=== PATIENT | female | born 2005 | race Hispanic/Latino ===

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

== ENCOUNTER 2025-03-03 10:19 | Emergency (ER) | payer BC ==
[~2025-03-03] VITALS: Ht 157.5 cm; Wt 107.5 kg
--- NOTE | 2025-03-03 10:29 | ERN ---
ED Note History of Present Illness Stated Complaint: VAGINAL PAIN, DYSURIA X3 DAYS Chief Complaint: Vaginal Problems/Bleeding Time Seen by MD: 10:22 Dictation: PATIENT IS A 19-YEAR-OLD FEMALE COMING IN TODAY WITH SUPRAPUBIC TENDERNESS AND DYSURIA SHE HAS HAD FOR THREE DAYS. SHE DENIES FEVER CHILLS NAUSEA VOMITING, NO FLANK PAIN. STATES SHE HAS A HISTORY OF URINARY TRACT INFECTIONS HOWEVER DID NOT HAVE TIME TO GO SEE HER DOCTOR LAST WEEK WHEN SHE HAD THE SYMPTOMS.. SHE STATES SHE IS SEXUALLY ACTIVE, NO CONTROL. Allergies: Coded Allergies: No Known Drug Allergies (Unverified Allergy, Unknown, 12/12/19) Home Meds Active Scripts Phenazopyridine HCl (Pyridium) 200 Mg Tab, 200 MG PO TIDPC for 3 Days, #9 TAB TAKE WITH FOOD TO PREVENT STOMACH UPSET. Prov:ALICE VASQUES NP 03/03/25 Amoxicillin/Potassium Clav (Amox Tr-K Clv 875-125 mg Tab) 875 Mg-125 Mg Tablet, 1 EACH PO BID for 5 Days, #10 TAB 0 Refills Prov:ALICE VASQUES NP 03/03/25 Nitrofurantoin/Nitrofuran Mac (Macrobid) 100 Mg Cap, 1 CAP PO BID for 5 Days, #10 CAP 0 Refills Prov:IRON BINGHAM 10/24/24 Famotidine (Pepcid) 20 Mg Tablet, 1 TAB PO BID for 30 Days, #60 TAB 0 Refills Prov:IRON BINGHAM 09/01/24 Ondansetron (Ondansetron Odt) 4 Mg Tab.rapdis, 4 MG PO BID for 7 Days, #14 TAB Prov:IRON BINGHAM 09/01/24 Sulfamethoxazole/Trimethoprim (Bactrim Ds Tablet) 800 Mg-160 Mg Tablet, 1 TAB PO BID for 7 Days, #14 TAB 0 Refills Prov:IRON BINGHAM 09/01/24 Dicyclomine HCl (Bentyl) 20 Mg Tab, 20 MG PO BID for 5 Days, #10 TAB Prov:VIKASH KEITH MD 03/20/24 Nitrofurantoin Macrocrystal (Nitrofurantoin) 100 Mg Capsule, 100 MG PO BID for 7 Days, #14 CAP Prov:VIKASH KEITH MD 03/18/24 Ondansetron (Ondansetron Odt) 4 Mg Tab.rapdis, 4 MG SL TID PRN for NAUSEA, #30 TAB 0 Refills Prov:SAAD LITTLE MD 04/29/23 Meclizine HCl (Meclizine HCl) 25 Mg Tablet, 25 MG PO TIDP PRN for DIZZINESS, #30 TAB 0 Refills Prov:SAAD LITTLE MD 04/29/23 Pantoprazole Sodium (Pantoprazole Sodium) 20 Mg Tablet.dr, 20 MG PO DAILY, #30 TAB 0 Refills Prov:SAAD LITTLE MD 04/29/23 Ondansetron (Ondansetron Odt) 4 Mg Tab.rapdis, 4 MG PO Q6HPRN PRN for NAUSEA/VOMITING for 4 Days, #16 TAB Prov:SEAN MORRISON SHOCK ABSORPTION FLOOR LAYER 04/28/23 Cephalexin Monohydrate (Keflex) 500 Mg Cap, 500 MG PO BID for 7 Days, #28 CAP Prov:SEAN MORRISON SHOCK ABSORPTION FLOOR LAYER 04/28/23 Ondansetron (Ondansetron Odt) 4 Mg Tab.rapdis, 4 MG PO TID PRN for NAUSEA/VOMITING, #15 TAB 0 Refills Prov:SAAD LITTLE MD 10/02/22 Loperamide HCl (Imodium) 2 Mg Cap, 2 MG PO QIDP PRN for DIARRHEA, #15 CAP 0 Refills Prov:SAAD LITTLE MD 10/02/22 Nitrofurantoin/Nitrofuran Mac (Macrobid) 100 Mg Cap, 1 CAP PO BID for 7 Days, #14 CAP 0 Refills Prov:SAAD LITTLE MD 10/02/22 Famotidine (Pepcid) 20 Mg Tablet, 20 MG PO BID, #60 TAB Prov:ELKIN BHATT 09/30/22 Past Medical History Past Medical History: GERD Additional Past Medical Hx: Morbidly obese, H-PYLORI GASTRITIS Surgical History: None Family History: Negative Social History: Lives with family LMP: Feb 10, 2025 : 0 Para: 0 Aborts: 0 RN Note Reviewed/Agreed w/PFSH: Yes Review of System Dictation CONSTITUTIONAL: NEGATIVE EXCEPT FOR HPI HEAD/FACE: NEGATIVE EXCEPT FOR HPI EENT: NEGATIVE EXCEPT FOR HPI RESPIRATORY: NEGATIVE EXCEPT FOR HPI GASTROINTESTINAL/ABDOMINAL: NEGATIVE EXCEPT FOR HPI GENITOURINARY: NEGATIVE EXCEPT FOR HPI DYSURIA WITH SUPRAPUBIC PAIN MUSCULOSKELETAL: NEGATIVE EXCEPT FOR HPI INTEGUMENTARY: NEGATIVE EXCEPT FOR HPI NEUROLOGICAL/PSYCH: NEGATIVE EXCEPT FOR HPI HEMATOLOGIC/LYMPHATIC: NEGATIVE EXCEPT FOR HPI ALL SYSTEMS NEGATIVE, EXCEPT NOTED ABOVE. 13 POINT REVIEW OF SYSTEMS ASSESSED AND ALL NEGATIVE EXCEPT FOR ABOVE. Initial Vital Sign VS Vital Signs Date Time Temp Pulse Resp B/P (MAP) Pulse Ox O2 Delivery O2 Flow Rate FiO2 03/03/25 10:22 97.5 90 14 149/87 97 Room Air 0 03/03/25 12:06 21 Physical Exam Dictation VITAL SIGNS REVIEWED GENERAL APPEARANCE: ALERT, ORIENTED X 3, MILD ACUTE DISTRESS, WELL DEVELOPED, NOURISHED. MODERATELY OBESE HEAD AND FACE: NON-TRAUMATIC. EYES: PERRL, PINK CONJUNCTIVAS, EYELID NO TRAUMA, ANTERIOR CHAMBER WITH ARCUS SE NILIS. EARS: PINNAS INTACT AND NO SIGNS OF TRAUMA OR ERYTHEMA EAR CANALS CLEAR AND NO DISCHARGE TM NO ERYTHEMA NOSE: NO DISCHARGE, NO BLEEDING. OROPHARYNX: MOUTH NORMAL, TONGUE PINK, PHARYNX CLEAR,NO ERYTHEMA, TONSILS NO EXUDATES, NO ABSCESSES NOTED, MUCOUS MEMBRANE MOIST NECK: SUPPLE, NON-TENDER, NO THYROMEGALY, NO MASSES, NO JVD, NO BRUITS BREAST:DEFERRED CHEST:NO TENDERNESS, NO CREPITUS, NO PARADOXICAL MOVEMENT, NO RETRACTIONS LUNGS:CLEAR, WELL-VENTILATED, SYMMETRIC, NO RALES, NO WHEEZING, NO RHONCHI, NO STRIDOR, GOOD BREATH SOUNDS BILATERALLY HEART: REGULAR RATE, REGULAR RHYTHM, NO MURMUR, NO GALLOPS VASCULAR: NO PERIPHERAL EDEMA, ABDOMEN: SOFT, POSITIVE BOWEL SOUNDS, NONDISTENDED, NO GUARDING, NONTENDER, NO REBOUND, NO MASSES NO HEPATOMEGALY, NO SPLENOMEGALY, NO CRUZ'S SIGN, NO HERNIAS. NEGATIVE CVAT RECTAL: DEFERRED GENITAL: DEFERRED NEUROLOGICAL: NORMAL SPEECH, MOTOR FUNCTION INTACT, SENSORY FUNCTION INTACT MUSCULOSKELETAL: NECK NONTENDER, FULL RANGE OF MOTION, BACK NONTENDER, FULL RA NGE OF MOTION, EXTREMITIES: NONTENDER, FULL RANGE OF MOTION SKIN: COLOR PINK, DRY, NO TURGOR, NO RASH, NO LACERATIONS, NO ABRASIONS, NO CONTUSIONS. LYMPHATIC: DEFERRED Results (Laboratory/Radiology) Laboratory/Radiology Laboratory Tests Test 03/03/25 10:58 Urine Color DARK-ORANGE (YELLOW) Urine Appearance CLEAR (CLEAR) Urine pH 6.0 (5.0-8.0) Urine Specific [place] 1.033 (1.001-1.031) Urine Protein 30 mg/dL (NEGATIVE) H Urine Glucose (UA) NEGATIVE mg/dL (NEGATIVE) Urine Ketones 5 mg/dL (NEGATIVE) H Urine Occult Blood NEGATIVE (NEGATIVE) Urine Nitrate 2+ (NEGATIVE) H Urine Bilirubin 2 mg/dL (NEGATIVE) H Urine Urobilinogen 6 mg/dL (0.2-1.0) H Urine Leukocyte Esterase NEGATIVE [place]/uL Urine RBC 0-1 /HPF (0-1) Urine WBC 2-5 /HPF (0-1) H Urine Squamous Epithelial Cells RARE /HPF (0-2) Urine Bacteria RARE /HPF (None Seen) Urine HCG, Qualitative NEGATIVE (NEGATIVE) Labs Reviewed?: Yes ED Course ED Course Orders Procedure Category Date Status Time ,Urine Test LAB 03/03/25 Complete 10:27 Urinalysis Profile LAB 03/03/25 Complete 10:27 Acetaminophen 500mg PHA 03/03/25 Complete Tab (Tylenol 500mg T 10:30 Culture Urine KIRSTIE 03/03/25 In Process 11:20 Current Medications Medications (Trade) Dose Ordered Sig/Monico Route PRN Reason Start Time Stop Time Status Last Admin Dose Admin Acetaminophen (TYLenol 500MG TAB) 1,000 mg ONCE ONCE PO 03/03/25 10:30 03/03/25 10:31 DC Vital Signs Date Time Temp Pulse Resp B/P (MAP) Pulse Ox O2 Delivery O2 Flow Rate FiO2 03/03/25 12:06 97.5 86 16 125/70 99 Room Air* 0 21 03/03/25 10:22 97.5 90 14 149/87 97 Room Air 0 1132/PATIENT HAS A ACUTE YOUR NEW TRACT INFECTION WE WILL BE DISCHARGED HOME WITH AUGMENTIN AND TOLD TO SEE HER PRIMARY CARE DOCTOR ON WEDNESDAY. Medical Decision Making MDM MEDICAL DISCHARGE MAKING BASED ON URINALYSIS AND HCG HCG NEGATIVE PATIENT HAS A ACUTE CYSTITIS DISCHARGED HOME WITH AUGMENTIN AND PYRIDIUM DX & DISP Disposition: Discharge Departure Impression: Primary Impression: Acute cystitis with hematuria Condition: Stable Scripts Phenazopyridine HCl (Pyridium) 200 Mg Tab 200 MG PO TIDPC for 3 Days, #9 TAB TAKE WITH FOOD TO PREVENT STOMACH UPSET. Prov: ALICE VASQUES SHOCK ABSORPTION FLOOR LAYER 03/03/25 Amoxicillin/Potassium Clav (Amox Tr-K Clv 875-125 mg Tab) 875 Mg-125 Mg Tablet 1 EACH PO BID for 5 Days, #10 TAB 0 Refills Prov: ALICE VASQUES NP 03/03/25 Additional Instructions: FOLLOW-UP WITH PRIMARY CARE PROVIDER IN 1 TO 2 DAYS. TAKE MEDICATIONS DIRECTED HERE IN THE EMERGENCY ROOM. OKAY TO CONTINUE HOME MEDICATIONS UNLESS OTHERWISE DISCUSSED DURING YOUR VISIT IN THE EMERGENCY ROOM TODAY. RETURN TO YOUR NEAREST EMERGENCY ROOM IF SYMPTOMS WORSEN OR IF THERE IS NO IMPROVEMENT. CALL 911 IF YOU NEED IMMEDIATE ASSISTANCE. TAKE TYLENOL OR MOTRIN [id number] NEEDED AND IF NO CONTRAINDICATIONS ARE PRESENT. INCREASE ORAL HYDRATION. A WOUND CULTURE OR URINE CULTURE WAS ORDERED HERE IN THE EMERGENCY ROOM DEPARTMENT PLEASE FOLLOW-UP WITH PRIMARY CARE PROVIDER AND ADVISE THEM TO GET REPEAT PORTS FROM OUR FACILITY. IF YOU HAD ANY WESLEY WRAP/SPLINTS THAT WERE APPLIED HERE, PLEASE DO NOT REMOVE THEM UNTIL YOU SEE YOUR PRIMARY CARE OR SPECIALTY. TAKE ANTIBIOTICS DIRECTED UNTIL GONE. INCREASE YOUR WATER INTAKE. , REMEMBER THE PYRIDIUM WILL TURN YOUR URINE ORANGE RED. SEE YOUR PRIMARY CARE DOCTOR FOR FOLLOW UP NEXT WEEK Referrals: BROOKLYNN BRADY MD (PCP) Time of Disposition: 11:37 I have reviewed the case, and I agree with, Diagnosis and Plan ALICE VASQUES NP Mar 03, 2025 10:29 OLE MARS DO Mar 03, 2025 13:55
[2025-03-03] MEDS: acetaMINOPHEN 500 MG TABLET PO ONE (10:57)
[2025-03-03 11:14] LABS: APPEARANCE,URINE CLEAR (CLEAR); BILIRUBIN,URINE 2 mg/dL (NEGATIVE); COLOR,URINE DARK-ORANGE (YELLOW); GLUCOSE, URINE (UA) NEGATIVE (NEGATIVE); KETONES,URINE 5 mg/dL (NEGATIVE); LEUKOCYTE ESTERASE ,URINE NEGATIVE Leu/uL (NEGATIVE); NITRATE,URINE 2+ (NEGATIVE); OCCULT BLOOD,URINE NEGATIVE (NEGATIVE); PROTEIN,URINE 30 mg/dL (NEGATIVE); UROBILINOGEN,URINE 6 mg/dL (0.2-1.0)
[2025-03-03 11:15] LABS: HCG,QUALITATIVE URINE NEGATIVE (NEGATIVE)
[2025-03-03 11:20] LABS: ADD UA MICROSCOPIC YES
[2025-03-03 11:24] LABS: BACTERIA,URINE RARE /HPF (None Seen); MUCUS,URINE MOD LPF (None Seen); RBC,URINE 0-1 /HPF (0-1); SQUAMOUS EPITHELIAL CELL,UR RARE /HPF (0-2)
[2025-03-03] MEDS ORDERED: PHEN-847 PO (11:38)
[2025-03-03] MEDS ORDERED: AMOX1TAB16 PO (11:38)
[2025-03-03 12:06] VITALS: BP 125/70; PULSE 86; RESP 16; TEMP 97.6; O2SAT 99
== END 2025-03-03 12:08 | disposition home or self-care (01) ==
LOC: EDH 10:19
DX: N30.01 Acute cystitis with hematuria (principal); E66.01 Morbid (severe) obesity due to excess calories; Z79.899 Other long term (current) drug therapy
CPT/HCPCS: 81001; 81025; 87086; 99283

== ENCOUNTER 2025-03-05 07:04 | Emergency (ER) | payer BC ==
[~2025-03-05] VITALS: Ht 162.6 cm; Wt 107.5 kg
[~2025-03-05 07:04] MED LIST changes: +AMOX1TAB16 PO; +PHEN-847 PO
[2025-03-05 07:50] LABS: BASOPHILS # (AUTO) 0.04 K/uL (0.00-0.20); BASOPHILS % (AUTO) 0.3 % (0.0-5.0); EOSINOPHILS # (AUTO) 0.03 K/uL (0.00-0.70); EOSINOPHILS % (AUTO) 0.2 % (0.0-8.0); HEMATOCRIT 40.9 % (36-48); IMMATURE GRANULOCYTE ABSOLUTE 0.05 K/uL (0-1); LYMPHOCYTES # (AUTO) 2.2 K/uL (1.0-4.8); LYMPHOCYTES % (AUTO) 16.9 % (21.0-51.0); MEAN CORPUSCULAR HEMOGLOBIN 31.7 pg (27.0-33.0); MEAN CORPUSCULAR HGB CONC 34.2 g/dL (32.0-36.0); MEAN CORPUSCULAR VOLUME 92.7 fL (80-100); MONOCYTES # (AUTO) 0.6 K/uL (0.1-1.0); MONOCYTES % (AUTO) 4.5 % (3.0-13.0); NEUTROPHILS # (AUTO) 10.3 K/uL (1.8-7.7); NEUTROPHILS % (AUTO) 77.7 % (40.0-77.0); PLATELET COUNT (AUTO) 323 K/uL (130-400); RED BLOOD CELL COUNT(AUTO) 4.41 MIL/uL (4.00-5.50); RED CELL DISTRIBUTION WIDTH 12.8 % (11.0-15.5); WHITE BLOOD COUNT (AUTO) 13.2 K/uL (4.8-10.8)
[2025-03-05 07:52] LABS: APPEARANCE,URINE CLEAR (CLEAR); KETONES,URINE 15 mg/dL (NEGATIVE); LEUKOCYTE ESTERASE ,URINE TRACE Leu/uL (NEGATIVE); OCCULT BLOOD,URINE NEGATIVE (NEGATIVE)
[2025-03-05 08:05] LABS: CREATININE 0.6 mg/dL (0.5-1.0); POTASSIUM 3.4 mmol/L (3.5-5.1)
[2025-03-05 08:24] LABS: COLOR,URINE ORANGE (YELLOW)
[2025-03-05 08:26] LABS: GLUCOSE, URINE (UA) NEGATIVE (NEGATIVE)
[2025-03-05 08:28] LABS: ADD UA MICROSCOPIC YES
[2025-03-05 08:29] LABS: BACTERIA,URINE None Seen /HPF (None Seen); MUCUS,URINE Moderate LPF (None Seen); RBC,URINE 0-1 /HPF (0-1); SQUAMOUS EPITHELIAL CELL,UR Rare /HPF (0-2); WBC,URINE 0-1 /HPF (0-1)
[2025-03-05] MEDS: PANTOPrazole 40 MG/VIAL ONE (08:29)
[2025-03-05 08:30] LABS: YEAST,URINE BUDDING Rare /HPF (None Seen)
[2025-03-05] MEDS: ketOROlac 30MG VIAL (30MG/ML) IV ONE (08:31)
[2025-03-05] MEDS: ketOROlac 30MG VIAL (30MG/ML) ONE (08:31)
[2025-03-05] MEDS: 0.9%NACL 1000ML 1,000 ML IV ONE (08:31)
[2025-03-05] MEDS: PANTOPrazole 40 MG/VIAL IVP ONE (08:31)
[2025-03-05 08:43] LABS: AMPHET/METH SCREEN,URINE NEGATIVE (NEGATIVE); BARBITURATE SCREEN, URINE NEGATIVE (NEGATIVE); BENZODIAZEPINES SCREEN,URINE NEGATIVE (NEGATIVE); CANNABINOID SCREEN,URINE POSITIVE (NEGATIVE); COCAINE SCREEN,URINE NEGATIVE (NEGATIVE); OPIATE SCREEN,URINE NEGATIVE (NEGATIVE); PHENCYCLIDINE SCREEN,URINE NEGATIVE (NEGATIVE)
[2025-03-05 08:44] LABS: ALBUMIN 3.8 g/dL (3.5-5.0); BILIRUBIN,DIRECT 0.1 mg/dL (0.0-0.3); BILIRUBIN,TOTAL 0.6 mg/dL (0.2-1.0); TOTAL PROTEIN, SERUM 7.9 g/dL (6.0-8.3)
[2025-03-05] MEDS ORDERED: HALOPERIDOL INJ 5 MG/ML VIAL IV PRN (09:00)
[2025-03-05] MEDS: ondanSETRON 4MG INJ IVP ONE (09:37)
--- NOTE | 2025-03-05 09:38 | EKG ---
[facility] Test Date: 2025-03-05 Test Time: 09:06:51 Pat Name: JOHNATHAN RAGSDALE Department: [facility] Room: Gender: F Can Line Examiner: [id number] : 2005 Requested By: WARNER HAYES Order Number: [id number] Reading MD: Abran Feliz Measurements Intervals [place] Rate: 67 P: 71 IL: 155 QRS: 61 QRSD: 117 T: 24 QT: 413 QTc: 436 Interpretive Statements Sinus rhythm Nonspecific intraventricular conduction delay No previous ECG available for comparison Electronically Signed On 03-06-2025 13:36:04 CDT by Abran Feliz Please click the below link to view image of tracing.
[2025-03-05 09:40] VITALS: O2SAT 99
[2025-03-05] MEDS: HALOPERIDOL INJ 5 MG/ML VIAL IM ONE (09:41)
--- NOTE | 2025-03-05 10:36 | HMCIMG ---
CT ABDOMEN/PELVIS W/O CONTRAST HISTORY: Abdominal pain COMPARISON: 10/24/2024 TECHNIQUE: Multiple sequential axial images of the abdomen and pelvis were obtained from the dome of the diaphragm through symphysis pubis. Patient was not given contrast through intravenous route. Oral contrast was not given. FINDINGS: No pleural effusion is seen bilaterally. There is no evidence of parenchymal disease or pulmonary nodule of the visualized lower lungs. Degenerative changes of the thoracolumbar spine are present. The heart is not enlarged. The liver, spleen, adrenal glands and pancreas are unremarkable. There is no evidence of hydronephrosis bilaterally. No evidence of renal stone is seen. Fecal material is seen in the colon. There are normal size retroperitoneal and mesenteric lymph nodes. No ascites is seen. No CT evidence of acute appendicitis is seen. Pelvic sidewalls are symmetric bilaterally. Bladder is poorly distended. If there is clinical suspicion for cystitis, urinalysis correlation may be helpful. IMPRESSION: 1. No acute findings. CT was performed with one or more following dose reduction techniques: automated exposure control, adjustment of the mA and kv according to patient's size, or use of a iterative reconstruction technique.
--- NOTE | 2025-03-05 10:40 | ERN ---
General Chief Complaint: Painful Urination Stated Complaint: LOWER ABD PAIN, DX W/ UTI Time Seen by MD: 07:17 Source: patient History of Present Illness Initial Comments THIS IS A 19-YEAR-OLD FEMALE COMING IN TO BE EVALUATED FOR ABDOMINAL PAIN. PATIENT INITIALLY STATES THAT SHE HAS BEEN HAVING SUPRAPUBIC PAIN WHICH WAS SEEN BEFORE AND WAS PRESCRIBED ANTIBIOTICS FOR URINARY TRACT INFECTION. SHE STATES NOW THAT THE PAIN IS GENERALIZED IN HIS PRESENT IN ALL AREAS OF HER BELLY. NO NAUSEA NO VOMITING. Allergies: Coded Allergies: No Known Drug Allergies (Unverified Allergy, Unknown, 12/12/19) Home Meds Active Scripts Phenazopyridine HCl (Pyridium) 200 Mg Tab, 200 MG PO TIDPC for 3 Days, #9 TAB TAKE WITH FOOD TO PREVENT STOMACH UPSET. Prov:ALICE VASQUES NP 03/03/25 Amoxicillin/Potassium Clav (Amox Tr-K Clv 875-125 mg Tab) 875 Mg-125 Mg Tablet, 1 EACH PO BID for 5 Days, #10 TAB 0 Refills Prov:ALICE VASQUES NP 03/03/25 Nitrofurantoin/Nitrofuran Mac (Macrobid) 100 Mg Cap, 1 CAP PO BID for 5 Days, #10 CAP 0 Refills Prov:IRON BINGHAM 10/24/24 Famotidine (Pepcid) 20 Mg Tablet, 1 TAB PO BID for 30 Days, #60 TAB 0 Refills Prov:IRON BINGHAM 09/01/24 Ondansetron (Ondansetron Odt) 4 Mg Tab.rapdis, 4 MG PO BID for 7 Days, #14 TAB Prov:IRON BINGHAM 09/01/24 Sulfamethoxazole/Trimethoprim (Bactrim Ds Tablet) 800 Mg-160 Mg Tablet, 1 TAB PO BID for 7 Days, #14 TAB 0 Refills Prov:IRON BINGHAM 09/01/24 Dicyclomine HCl (Bentyl) 20 Mg Tab, 20 MG PO BID for 5 Days, #10 TAB Prov:VIKASH KEITH MD 03/20/24 Nitrofurantoin Macrocrystal (Nitrofurantoin) 100 Mg Capsule, 100 MG PO BID for 7 Days, #14 CAP Prov:VIKASH KEITH MD 03/18/24 Ondansetron (Ondansetron Odt) 4 Mg Tab.rapdis, 4 MG SL TID PRN for NAUSEA, #30 TAB 0 Refills Prov:SAAD LITTLE MD 04/29/23 Meclizine HCl (Meclizine HCl) 25 Mg Tablet, 25 MG PO TIDP PRN for DIZZINESS, #30 TAB 0 Refills Prov:SAAD LITTLE MD 04/29/23 Pantoprazole Sodium (Pantoprazole Sodium) 20 Mg Tablet.dr, 20 MG PO DAILY, #30 TAB 0 Refills Prov:SAAD LITTLE MD 04/29/23 Ondansetron (Ondansetron Odt) 4 Mg Tab.rapdis, 4 MG PO Q6HPRN PRN for NAUSEA/VOMITING for 4 Days, #16 TAB Prov:SEAN MORRISON COMMAND AND CONTROL SYSTEMS INTEGRATOR 04/28/23 Cephalexin Monohydrate (Keflex) 500 Mg Cap, 500 MG PO BID for 7 Days, #28 CAP Prov:SEAN MORRISON COMMAND AND CONTROL SYSTEMS INTEGRATOR 04/28/23 Ondansetron (Ondansetron Odt) 4 Mg Tab.rapdis, 4 MG PO TID PRN for NAUSEA/VOMITING, #15 TAB 0 Refills Prov:SAAD LITTLE MD 10/02/22 Loperamide HCl (Imodium) 2 Mg Cap, 2 MG PO QIDP PRN for DIARRHEA, #15 CAP 0 Refills Prov:SAAD LITTLE MD 10/02/22 Nitrofurantoin/Nitrofuran Mac (Macrobid) 100 Mg Cap, 1 CAP PO BID for 7 Days, #14 CAP 0 Refills Prov:SAAD LITTLE MD 10/02/22 Famotidine (Pepcid) 20 Mg Tablet, 20 MG PO BID, #60 TAB Prov:ELKIN BHATT 09/30/22 Past Medical History Past Medical History: GERD Medical History Other: Morbidly obese, H-PYLORI GASTRITIS Past Surgical History: None Family History Family History: Negative Social History Social History: Lives with family Female( History) LMP: Feb 10, 2025 : 0 Para: 0 Aborts: 0 Results Laboratory and Microbiology Lab and Micro Result Laboratory Tests Test 03/05/25 07:40 White Blood Count 13.2 K/uL (4.8-10.8) H Red Blood Count 4.41 MIL/uL (4.00-5.50) Hemoglobin 14.0 g/dL (12.0-16.0) Hematocrit 40.9 % (36-48) Mean Corpuscular Volume 92.7 fL (80-100) Mean Corpuscular Hemoglobin 31.7 pg (27.0-33.0) Mean Corpuscular Hemoglobin Concent 34.2 g/dL (32.0-36.0) Red Cell Distribution Width 12.8 % (11.0-15.5) Platelet Count 323 K/uL (130-400) Mean Platelet Volume 11.1 fL (7.5-10.5) H Immature Granulocyte % (Auto) 0.4 % (0-1) Neutrophils (%) (Auto) 77.7 % (40.0-77.0) H Lymphocytes (%) (Auto) 16.9 % (21.0-51.0) L Monocytes (%) (Auto) 4.5 % (3.0-13.0) Eosinophils (%) (Auto) 0.2 % (0.0-8.0) Basophils (%) (Auto) 0.3 % (0.0-5.0) Neutrophils # (Auto) 10.3 K/uL (1.8-7.7) H Lymphocytes # (Auto) 2.2 K/uL (1.0-4.8) Monocytes # (Auto) 0.6 K/uL (0.1-1.0) Eosinophils # (Auto) 0.03 K/uL (0.00-0.70) Basophils # (Auto) 0.04 K/uL (0.00-0.20) Absolute Immature Granulocyte (auto 0.05 K/uL (0-1) Nucleated Red Blood Cells 0.0 % (0.0-0.19) Urine Color ORANGE (YELLOW) H Urine Appearance CLEAR (CLEAR) Urine pH 5.0 (5.0-8.0) Urine Specific [place] 1.025 (1.001-1.031) Urine Protein mg/dL (NEGATIVE) Urine Glucose (UA) NEGATIVE mg/dL (NEGATIVE) Urine Ketones 15 mg/dL (NEGATIVE) H Urine Occult Blood NEGATIVE (NEGATIVE) Urine Nitrate (NEGATIVE) Urine Bilirubin mg/dL (NEGATIVE) Urine Urobilinogen mg/dL (0.2-1.0) Urine Leukocyte Esterase TRACE Adair/uL (NEGATIVE) H Urine RBC 0-1 /HPF (0-1) Urine WBC 0-1 /HPF (0-1) Urine Squamous Epithelial Cells Rare /HPF (0-2) Urine Bacteria None Seen /HPF (None Seen) Urine Yeast Rare /HPF (None Seen) H Sodium Level 136 mmol/L (136-145) Potassium Level 3.4 mmol/L (3.5-5.1) L Chloride Level 101 mmol/L (101-111) Carbon Dioxide Level 26 mmol/L (21-32) Blood Urea Nitrogen 6 mg/dL (7-18) L Creatinine 0.6 mg/dL (0.5-1.0) Glomerular Filtration Rate Calc 133 mL/min (>90) Random Glucose 131 mg/dL (70-105) H Total Calcium 8.9 mg/dL (8.5-10.1) Total Bilirubin 0.6 mg/dL (0.2-1.0) Direct Bilirubin 0.1 mg/dL (0.0-0.3) Aspartate Amino Transf (AST/SGOT) 23 U/L (10-37) Alanine Aminotransferase (ALT/SGPT) 16 U/L (12-78) Alkaline Phosphatase 93 U/L (50-136) Total Creatine Kinase 89 U/L (21-232) Total Protein 7.9 g/dL (6.0-8.3) Albumin 3.8 g/dL (3.5-5.0) Lipase 24 U/L (16-77) Serum Test, Qualitative NEGATIVE (NEGATIVE) Urine Opiates Screen NEGATIVE (NEGATIVE) Urine Barbiturates Screen NEGATIVE (NEGATIVE) Urine Phencyclidine Screen NEGATIVE (NEGATIVE) Urine Amphetamines Screen NEGATIVE (NEGATIVE) Urine Benzodiazepines Screen NEGATIVE (NEGATIVE) Urine Cocaine Screen NEGATIVE (NEGATIVE) Urine Marijuana (THC) Screen POSITIVE (NEGATIVE) H Labs Reviewed?: Yes EKG/XRAY/US/CT/MRI EKG Comment 03/05/2025 TIME 9:06 A.M. VENTRICULAR RATE 67 SINUS RHYTHM [place] [address] WAVE ELEVATION OR DEPRESSION CT Scan Comment [address] [address] IMAGING REPORT Signed PATIENT: JOHNATHAN RAGSDALE MR#: [id number] : 2005 SEX: F AGE: 19 LOCATION: [facility] ORDER 3 STATUS: REG ER REPORT#: [id number] SERVICE 3 REASON: ABD PAIN ORDERING PHYSICIAN: WARNER HAYES MD PROCEDURE: ABD PEL WO - CT ABDOMEN/PELVIS W/O CONTRAST CT ABDOMEN/PELVIS W/O CONTRAST HISTORY: Abdominal pain COMPARISON: 10/24/2024 TECHNIQUE: Multiple sequential axial images of the abdomen and pelvis were obtained from the dome of the diaphragm through symphysis pubis. Patient was not given contrast through intravenous route. Oral contrast was not given. FINDINGS: No pleural effusion is seen bilaterally. There is no evidence of parenchymal disease or pulmonary nodule of the visualized lower lungs. Degenerative changes of the thoracolumbar spine are present. The heart is not enlarged. The liver, spleen, adrenal glands and pancreas are unremarkable. There is no evidence of hydronephrosis bilaterally. No evidence of renal stone is seen. Fecal material is seen in the colon. There are normal size retroperitoneal and mesenteric lymph nodes. No ascites is seen. No CT evidence of acute appendicitis is seen. Pelvic sidewalls are symmetric bilaterally. Bladder is poorly distended. If there is clinical suspicion for cystitis, urinalysis correlation may be helpful. IMPRESSION: 1. No acute findings. CT was performed with one or more following dose reduction techniques: automated exposure control, adjustment of the mA and kv according to patient's size, or use of a iterative reconstruction technique. DICTATED BY: GISELLA RAHMAN MD DATE: 03/05/25 1031 ELECTRONICALLY SIGNED BY: GISELLA RAHMAN MD DATE: 03/05/25 1036 [facility] MDM: DIFFERENTIAL DIAGNOSIS: GASTRITIS, CANNABIS ABUSE, CONSTIPATION RATIONALE: TESTS CONSIDERED AND ORDERED SECONDARY TO SHARED DECISION MAKING INCLUDE: PREVIOUS OUTSIDE RECORDS REVIEWED: OLD ER VISITS. PATIENT IS A AN 82-YEAR-OLD FEMALE COMING IN TO BE EVALUATED FOR ABDOMINAL PAIN. CT DID NOT DISCLOSE ANY FINDINGS. PATIENT WAS CONSTIPATED AND WAS POSITIVE FOR CANNABIS. PATIENT WILL BE DISCHARGED IN STABLE CONDITION WITH A DIAGNOSIS OF CANNABIS ABUSE AND CONSTIPATION. ED Course Orders Procedure Category Date Status Time Urinalysis Profile LAB 03/05/25 Complete 07:14 Cbc With Differential LAB 03/05/25 Complete 07:14 Basic Metabolic Panel LAB 03/05/25 Complete 07:39 Testing, LAB 03/05/25 Complete Serum Hcg 07:39 Hepatic Function Panel LAB 03/05/25 Complete 08:19 Drug Screen Urine LAB 03/05/25 Complete 08:19 0.9%Nacl 1000ml (Ns PHA 03/05/25 Complete 1000ml) 08:30 Pantoprazole 40mg Inj PHA 03/05/25 Complete (Protonix 40mg Inj 08:30 Pantoprazole 40mg Inj PHA 03/05/25 Complete (Protonix 40mg Inj 08:25 Ketorolac PHA 03/05/25 Complete Tromethamine 30mg/Ml 08:30 Ketorolac PHA 03/05/25 Complete Tromethamine 30mg/Ml 08:29 Creatine Kinase, Total LAB 03/05/25 Complete 08:19 Lipase LAB 03/05/25 Complete 08:19 Ondansetron 4mg Inj PHA 03/05/25 Complete (Zofran 4mg Inj) 09:00 Haloperidol Inj PHA 03/05/25 Complete (Haldol Inj) 09:00 12 Lead Ekg Tracing- EKG 03/05/25 Complete Technical 08:55 Ct Abdomen/Pelvis W/O CT 03/05/25 Resulted Contrast 09:24 Haloperidol Inj PHA 03/05/25 Complete (Haldol Inj) 09:30 Lidocaine Hcl 2% PHA 03/05/25 Complete Viscous (Lidocaine Hcl 10:30 Mag/Alum/Simeth 30ml PHA 03/05/25 Complete (Maalox Plus 30ml) 10:30 Current Medications Medications (Trade) Dose Ordered Sig/Monico Route PRN Reason Start Time Stop Time Status Last Admin Dose Admin Al Hydroxide/Mg Hydroxide (MAALox PLUS 30ML) 30 ml ONCE ONCE PO 03/05/25 10:30 03/05/25 10:31 DC Haloperidol Lactate (Haldol Inj) 2.5 mg ONCE ONCE IM 03/05/25 09:30 03/05/25 09:31 DC 03/05/25 09:41 Haloperidol Lactate (Haldol Inj) 2.5 mg ONCE PRN IV ANXIETY/AGITATION 03/05/25 09:00 03/05/25 09:26 DC Ketorolac Tromethamine (toRADol) 30 mg ONCE ONCE IV 03/05/25 08:30 03/05/25 08:31 DC 03/05/25 08:31 Ketorolac Tromethamine (toRADol) 30 mg STK-MED ONCE .ROUTE 03/05/25 08:29 03/05/25 08:29 DC Lidocaine HCl (Lidocaine HCl 2% Viscous) 10 ml ONCE ONCE PO 03/05/25 10:30 03/05/25 10:31 DC Ondansetron HCl (zoFRAN 4MG INJ) 4 mg ONCE ONCE IVP 03/05/25 09:00 03/05/25 09:01 DC 03/05/25 09:37 Pantoprazole Sodium (PROTonix 40MG INJ) 40 mg ONCE ONCE IVP 03/05/25 08:30 03/05/25 08:31 DC 03/05/25 08:31 Pantoprazole Sodium (PROTonix 40MG INJ) 40 mg STK-MED ONCE .ROUTE 03/05/25 08:25 03/05/25 08:26 DC Sodium Chloride 1,000 ml @ 0 mls/hr ONCE ONCE IV 03/05/25 08:30 03/05/25 08:31 DC 03/05/25 08:31 Vital Signs Date Time Temp Pulse Resp B/P (MAP) Pulse Ox O2 Delivery O2 Flow Rate FiO2 03/05/25 09:40 98.1 76 16 149/96 99 Room Air* 0 21 03/05/25 08:40 98.1 98 16 133/93 99 Room Air* 0 21 03/05/25 07:40 97.9 67 16 146/91 98 Room Air* 0 21 03/05/25 07:07 98.2 73 16 150/81 99 Room Air 0 DX & DISP Disposition: Discharge Departure Impression: Primary Impression: Gastritis Additional Impression: Cannabis abuse Condition: Stable Scripts Ondansetron (Ondansetron Odt) 4 Mg Tab.rapdis 1 TAB PO B.I.D. PRN for nausea/vomiting for 4 Days, #5 TAB 0 Refills Prov: WARNER HAYES MD 03/05/25 Additional Instructions: FOLLOW-UP WITH PRIMARY CARE PROVIDER IN 1 TO 2 DAYS. TAKE MEDICATIONS DIRECTED HERE IN THE EMERGENCY ROOM. OKAY TO CONTINUE HOME MEDICATIONS UNLESS OTHERWISE DISCUSSED DURING YOUR VISIT IN THE EMERGENCY ROOM TODAY. RETURN TO YOUR NEAREST EMERGENCY ROOM IF SYMPTOMS WORSEN OR IF THERE IS NO IMPROVEMENT. CALL 911 IF YOU NEED IMMEDIATE ASSISTANCE. TAKE TYLENOL [id number] NEEDED AND IF NO CONTRAINDICATIONS ARE PRESENT. INCREASE ORAL HYDRATION. A WOUND CULTURE OR URINE CULTURE WAS ORDERED HERE IN THE EMERGENCY ROOM DEPARTMENT PLEASE FOLLOW-UP WITH PRIMARY CARE PROVIDER AND ADVISE THEM TO GET REPEAT PORTS FROM OUR FACILITY. IF YOU HAD ANY WESLEY WRAP/SPLINTS THAT WERE APPLIED HERE, PLEASE DO NOT REMOVE THEM UNTIL YOU SEE YOUR PRIMARY CARE OR SPECIALTY. REFERRALS: Referrals: MARTHA SWANSON MD (PCP) Time of Disposition: 10:43 WARNER HAYES MD Mar 05, 2025 10:40
[2025-03-05] MEDS ORDERED: ONDA-243 PO (10:44)
[2025-03-05] MEDS: MAG/ALUM/SIMETH 30 ML UDCUP PO ONE (10:50)
[2025-03-05] MEDS: LIDOCAINE HCL 2% VISCOUS 15 ML UDCUP PO ONE (10:58)
[2025-03-05 11:05] VITALS: BP 116/57; PULSE 70; RESP 16; TEMP 98
== END 2025-03-05 11:20 | disposition home or self-care (01) ==
LOC: EDH 07:04
DX: K29.70 Gastritis, unspecified, without bleeding (principal); F12.10 Cannabis abuse, uncomplicated; E66.01 Morbid (severe) obesity due to excess calories; Z79.899 Other long term (current) drug therapy; Z68.54 Body mass index [BMI] pediatric, 95th percentile for age to less than 120% of the 95th percentile for age
CPT/HCPCS: 99284; 74176; 96374; 96375; 96361; 82550; 80076; 80048; 80305; 84703; 83690; 85025; 81001; 36415; 96372; 93005; J1885; J7030; J1630; J2405; J2470

== ENCOUNTER 2025-05-08 11:30 | Emergency (ER) | payer BC ==
[~2025-05-08] VITALS: Ht 160 cm; Wt 122.5 kg
[2025-05-08 12:13] LABS: APPEARANCE,URINE CLOUDY (CLEAR); GLUCOSE, URINE (UA) 30 mg/dL (NEGATIVE); LEUKOCYTE ESTERASE ,URINE 25 Leu/uL (NEGATIVE); NITRATE,URINE NEGATIVE (NEGATIVE); OCCULT BLOOD,URINE SMALL (NEGATIVE)
[2025-05-08 12:20] LABS: ADD UA MICROSCOPIC YES
[2025-05-08 12:29] LABS: SQUAMOUS EPITHELIAL CELL,UR MANY /HPF (0-2)
[2025-05-08] MEDS: PHENAZOpyridine HCL 200 MG TAB 200 MG TABLET ONE (12:54)
[2025-05-08] MEDS: PHENAZOpyridine HCL 200 MG TAB 200 MG TABLET PO ONE (12:54)
[2025-05-08] MEDS ORDERED: CEPH500B PO (13:12)
[2025-05-08 13:13] VITALS: BP 128/65; PULSE 80; RESP 16; TEMP 98.1; O2SAT 96
--- NOTE | 2025-05-08 13:13 | ERN ---
General Chief Complaint: Painful Urination Stated Complaint: DYSURIA, HEMATURIA History of Present Illness Initial Comments Female came in for painful urination going on for the past few days. Patient otherwise has no concerns. Allergies: Coded Allergies: No Known Drug Allergies (Unverified Allergy, Unknown, 12/12/19) Home Meds Active Scripts Ondansetron (Ondansetron Odt) 4 Mg Tab.rapdis, 1 TAB PO B.I.D. PRN for nausea/vomiting for 4 Days, #5 TAB 0 Refills Prov:WARNER HAYES MD 03/05/25 Phenazopyridine HCl (Pyridium) 200 Mg Tab, 200 MG PO TIDPC for 3 Days, #9 TAB TAKE WITH FOOD TO PREVENT STOMACH UPSET. Prov:ALICE VASQUES NP 03/03/25 Amoxicillin/Potassium Clav (Amox Tr-K Clv 875-125 mg Tab) 875 Mg-125 Mg Tablet, 1 EACH PO BID for 5 Days, #10 TAB 0 Refills Prov:ALICE VASQUES NP 03/03/25 Nitrofurantoin/Nitrofuran Mac (Macrobid) 100 Mg Cap, 1 CAP PO BID for 5 Days, #10 CAP 0 Refills Prov:IRON BINGHAM 10/24/24 Famotidine (Pepcid) 20 Mg Tablet, 1 TAB PO BID for 30 Days, #60 TAB 0 Refills Prov:IRON BINGHAM 09/01/24 Ondansetron (Ondansetron Odt) 4 Mg Tab.rapdis, 4 MG PO BID for 7 Days, #14 TAB Prov:IRON BINGHAM 09/01/24 Sulfamethoxazole/Trimethoprim (Bactrim Ds Tablet) 800 Mg-160 Mg Tablet, 1 TAB PO BID for 7 Days, #14 TAB 0 Refills Prov:IRON BINGHAM 09/01/24 Dicyclomine HCl (Bentyl) 20 Mg Tab, 20 MG PO BID for 5 Days, #10 TAB Prov:VIKASH KEITH MD 03/20/24 Nitrofurantoin Macrocrystal (Nitrofurantoin) 100 Mg Capsule, 100 MG PO BID for 7 Days, #14 CAP Prov:VIKASH KEITH MD 03/18/24 Ondansetron (Ondansetron Odt) 4 Mg Tab.rapdis, 4 MG SL TID PRN for NAUSEA, #30 TAB 0 Refills Prov:SAAD LITTLE MD 04/29/23 Meclizine HCl (Meclizine HCl) 25 Mg Tablet, 25 MG PO TIDP PRN for DIZZINESS, #30 TAB 0 Refills Prov:SAAD LITTLE MD 04/29/23 Pantoprazole Sodium (Pantoprazole Sodium) 20 Mg Tablet.dr, 20 MG PO DAILY, #30 TAB 0 Refills Prov:SAAD LITTLE MD 04/29/23 Ondansetron (Ondansetron Odt) 4 Mg Tab.rapdis, 4 MG PO Q6HPRN PRN for NAUSEA/VOMITING for 4 Days, #16 TAB Prov:[employer] 04/28/23 Cephalexin Monohydrate (Keflex) 500 Mg Cap, 500 MG PO BID for 7 Days, #28 CAP Prov:[employer] 04/28/23 Ondansetron (Ondansetron Odt) 4 Mg Tab.rapdis, 4 MG PO TID PRN for NAUSEA/VOMITING, #15 TAB 0 Refills Prov:SAAD LITTLE MD 10/02/22 Loperamide HCl (Imodium) 2 Mg Cap, 2 MG PO QIDP PRN for DIARRHEA, #15 CAP 0 Refills Prov:SAAD LITTLE MD 10/02/22 Nitrofurantoin/Nitrofuran Mac (Macrobid) 100 Mg Cap, 1 CAP PO BID for 7 Days, #14 CAP 0 Refills Prov:SAAD LITTLE MD 10/02/22 Famotidine (Pepcid) 20 Mg Tablet, 20 MG PO BID, #60 TAB Prov:ELKIN BHATT 09/30/22 Past Medical History Past Medical History: GERD Medical History Other: Morbidly obese, H-PYLORI GASTRITIS Past Surgical History: None Family History Family History: Negative Social History Social History: Lives with family Female( History) : 0 Para: 0 Aborts: 0 ROS Dictation CONSTITUTIONAL: No chills, no fever, no weakness, no diaphoresis, no malaise. HEAD/FACE: No signs of trauma. EENT: No eye pain, no blurred vision, no tearing, no double vision, no ear pain, no ear discharge, no nose pain, no nasal congestion, no throat pain, no throat swelling, no mouth pain. RESPIRATORY: No cough, no orthopnea, no SOB, no stridor, no wheezing. CARDIOVASCULAR: No chest pain, no edema, no palpitations, no syncope. GASTROINTESTINAL/ABDOMINAL: No abdominal pain, no constipation, no diarrhea, no nausea, no vomiting. GENITOURINARY: No abnormal discharge, no dysuria, no frequent urination, no hematuria. No complaints of pain in the genitals. MUSCULOSKELETAL: No back pain, no gout, no joint pain, no joint swelling, no muscle pain, no muscle stiffness, no neck pain. INTEGUMENTARY: No change in color, no change in hair/nails, no dryness, no lesion, no lumps, no rash. NEUROLOGICAL/PSYCH: No anxiety, not depressed, no emotional problem, no headache, no numbness, no pre-existing deficit, no history of seizures, no tremors, no weakness. HEMATOLOGIC/LYMPHATIC: Not anemic, no history of blood clots, no apparent bleeding, no bruising, glands not swollen. All Systems Negative, Except as Noted. Physical Exam Physical Exam Dictation VITAL SIGNS: Reviewed. GENERAL APPEARANCE: Alert, oriented x3, no acute distress, obese. HEAD AND FACE: Non-traumatic. EYES: PERRL, pink conjunctivas, eyelid no trauma, anterior chamber clear. EARS: Pinnas intact and no signs of trauma or erythema. Ear canals clear and no discharge. TMs no erythema. NOSE: No discharge, no bleeding. OROPHARYNX: Mouth normal, teeth no caries, tongue pink. Pharynx clear, no erythema. Tonsils no exudates, no abscesses noted. Mucous membrane moist. NECK: Supple, non-tender, no thyromegaly, no masses, no JVD, no bruits. BREAST: Deferred. CHEST: No tenderness, no crepitus, no paradoxical movement, no retractions. LUNGS: Clear, well-ventilated, symmetric, no rales, no wheezing, no rhonchi, no stridor, good breath sounds bilaterally. HEART: Regular rate, regular rhythm, no murmur, no gallops. VASCULAR: No peripheral edema. ABDOMEN: Soft, positive bowel sounds, nondistended, no guarding, nontender, no rebound, no masses no hepatomegaly, no splenomegaly, no Maynard's sign, no hernias. RECTAL: Deferred. GENITAL: Deferred. NEUROLOGICAL: Normal speech, gross motor function intact, gross sensory function intact. MUSCULOSKELETAL: Neck nontender, full range of motion, back nontender, full range of motion. EXTREMITIES: Nontender, full range of motion. SKIN: Color pink, dry, no turgor, no rash, no lacerations, no abrasions, no contusions. LYMPHATICS: Deferred. Results Laboratory and Microbiology Lab and Micro Result Laboratory Tests Test 05/08/25 11:40 Urine Color YELLOW (YELLOW) Urine Appearance CLOUDY (CLEAR) H Urine pH 6.0 (5.0-8.0) Urine Specific [place] 1.039 (1.001-1.031) Urine Protein 70 mg/dL (NEGATIVE) H Urine Glucose (UA) 30 mg/dL (NEGATIVE) H Urine Ketones 40 mg/dL (NEGATIVE) H Urine Occult Blood SMALL (NEGATIVE) H Urine Nitrate NEGATIVE (NEGATIVE) Urine Bilirubin NEGATIVE mg/dL (NEGATIVE) Urine Urobilinogen 2.0 mg/dL (0.2-1.0) H Urine Leukocyte Esterase 25 [place]/uL (NEGATIVE) H Urine RBC 6-10 /HPF (0-1) H Urine WBC 2-5 /HPF (0-1) H Urine Squamous Epithelial Cells MANY /HPF (0-2) Urine Bacteria None /HPF (None Seen) Urine HCG, Qualitative NEGATIVE (NEGATIVE) MDM MDM: Differential diagnosis: Rationale: Tests considered and ordered secondary to shared decision making include: Previous outside records reviewed: Old ER visits. Risk of complication and/or morbidity or mortality of patient management: None Medications-Per medication reconciliation Need for hospitalization: Patient does not meet criteria for hospitalization. Need for emergency major/minor surgery: No There are no social concerns with this patient. Prescription drug management Prescriptions will include symptomatic care Patient's prior external medical records from other ER visits were reviewed by me as indicated. Prior testing and results from previous visits were reviewed. Prior tests were taken into account with medical decision making and resource utilization, independent historian/historians were used to obtain complete medical history. I independently interpreted the test that were performed, results were reviewed by me and considered findings on radiology if ordered. Medical management and examination interpretation discussions were had by me with other qualified healthcare professionals as indicated for the patient's care. ED Course Orders Procedure Category Date Status Time Urinalysis Profile LAB 05/08/25 Complete 11:43 ,Urine Test LAB 05/08/25 Complete 12:40 Phenazopyridine Hcl PHA 05/08/25 Complete 200 Mg Tab (Pyridium 13:00 Phenazopyridine Hcl PHA 05/08/25 Complete 200 Mg Tab (Pyridium 12:51 Ketorolac PHA 05/08/25 Verified Tromethamine 30mg/Ml 13:30 Ceftriaxone 1g Vial PHA 05/08/25 Verified (Rocephine 1g Inj) 13:30 Current Medications Medications (Trade) Dose Ordered Sig/Monico Route PRN Reason Start Time Stop Time Status Last Admin Dose Admin Phenazopyridine HCl (PYRIdium HCL 200 MG TAB) 200 mg ONCE ONCE PO 05/08/25 13:00 05/08/25 13:01 DC 05/08/25 12:54 Phenazopyridine HCl (PYRIdium HCL 200 MG TAB) 200 mg STK-MED ONCE .ROUTE 05/08/25 12:51 05/08/25 12:51 DC Vital Signs Date Time Temp Pulse Resp B/P (MAP) Pulse Ox O2 Delivery O2 Flow Rate FiO2 05/08/25 11:36 98.1 84 16 135/61 96 Room Air* 0 21 05/08/25 11:32 98.1 84 16 135/61 96 Room Air 0 DX & DISP Disposition: Discharge Departure Impression: Primary Impression: UTI (urinary tract infection) Condition: Stable Scripts Cephalexin Monohydrate (Keflex) 500 Mg Cap 500 MG PO BID for 5 Days, #10 CAP Prov: ALEC NOVOA MD 05/08/25 Referrals: MARTHA SWANSON MD (PCP) ALEC NOVOA MD May 08, 2025 13:12
== END 2025-05-08 13:26 | disposition home or self-care (01) ==
LOC: EDH 11:30
DX: N39.0 Urinary tract infection, site not specified (principal); E66.01 Morbid (severe) obesity due to excess calories; Z79.899 Other long term (current) drug therapy
CPT/HCPCS: 99284; 81001; 81025; 96372 ×2; J1885; J0696

== ENCOUNTER 2025-06-06 08:29 | Emergency (ER) | payer BC ==
[~2025-06-06] VITALS: Ht 157.5 cm; Wt 117.9 kg
--- NOTE | 2025-06-06 09:11 | ERN ---
General Chief Complaint: Vaginal Bleeding Stated Complaint: VAGINAL BLEED, POSITIVE PREGNANY Time Seen by MD: 08:32 Source: patient History of Present Illness Initial Comments Jaja, with 20-year-old female, presented to the ED with symptoms of vaginal bleeding. Patient tested positive with urine test last night. She noticed mild vaginal spotting this morning. Patient is not actively bleeding. Patient states that spotting looked brownish in color. Patient is not in any acute distress and denies any pelvic pain, abdominal pain, fever, trauma. Patient's last menstrual period was on April 04. Allergies: Coded Allergies: No Known Drug Allergies (Unverified Allergy, Unknown, 12/12/19) Home Meds Active Scripts Cephalexin Monohydrate (Keflex) 500 Mg Cap, 500 MG PO BID for 5 Days, #10 CAP Prov:ALEC NOVOA MD 05/08/25 Ondansetron (Ondansetron Odt) 4 Mg Tab.rapdis, 1 TAB PO B.I.D. PRN for nausea/ vomiting for 4 Days, #5 TAB 0 Refills Prov:WARNER HAYES MD 03/05/25 Phenazopyridine HCl (Pyridium) 200 Mg Tab, 200 MG PO TIDPC for 3 Days, #9 TAB TAKE WITH FOOD TO PREVENT STOMACH UPSET. Prov:ALICE VASQUES NP 03/03/25 Amoxicillin/Potassium Clav (Amox Tr-K Clv 875-125 mg Tab) 875 Mg-125 Mg Tablet, 1 EACH PO BID for 5 Days, #10 TAB 0 Refills Prov:ALICE VASQUES NP 03/03/25 Nitrofurantoin/Nitrofuran Mac (Macrobid) 100 Mg Cap, 1 CAP PO BID for 5 Days, #10 CAP 0 Refills Prov:IRON BINGHAM 10/24/24 Famotidine (Pepcid) 20 Mg Tablet, 1 TAB PO BID for 30 Days, #60 TAB 0 Refills Prov:IRON BINGHAM 09/01/24 Ondansetron (Ondansetron Odt) 4 Mg Tab.rapdis, 4 MG PO BID for 7 Days, #14 TAB Prov:IRON BINGHAM 09/01/24 Sulfamethoxazole/Trimethoprim (Bactrim Ds Tablet) 800 Mg-160 Mg Tablet, 1 TAB PO BID for 7 Days, #14 TAB 0 Refills Prov:IRON BINGHAM 09/01/24 Dicyclomine HCl (Bentyl) 20 Mg Tab, 20 MG PO BID for 5 Days, #10 TAB Prov:VIKASH KEITH MD 03/20/24 Nitrofurantoin Macrocrystal (Nitrofurantoin) 100 Mg Capsule, 100 MG PO BID for 7 Days, #14 CAP Prov:VIKASH KEITH MD 03/18/24 Ondansetron (Ondansetron Odt) 4 Mg Tab.rapdis, 4 MG SL TID PRN for NAUSEA, #30 TAB 0 Refills Prov:SAAD LITTLE MD 04/29/23 Meclizine HCl (Meclizine HCl) 25 Mg Tablet, 25 MG PO TIDP PRN for DIZZINESS, #30 TAB 0 Refills Prov:SAAD LITTLE MD 04/29/23 Pantoprazole Sodium (Pantoprazole Sodium) 20 Mg Tablet.dr, 20 MG PO DAILY, #30 TAB 0 Refills Prov:SAAD LITTLE MD 04/29/23 Ondansetron (Ondansetron Odt) 4 Mg Tab.rapdis, 4 MG PO Q6HPRN PRN for NAUSEA/VOMITING for 4 Days, #16 TAB Prov:[employer] 04/28/23 Cephalexin Monohydrate (Keflex) 500 Mg Cap, 500 MG PO BID for 7 Days, #28 CAP Prov:[employer] 04/28/23 Ondansetron (Ondansetron Odt) 4 Mg Tab.rapdis, 4 MG PO TID PRN for NAUSEA/VOMITING, #15 TAB 0 Refills Prov:SAAD LITTLE MD 10/02/22 Loperamide HCl (Imodium) 2 Mg Cap, 2 MG PO QIDP PRN for DIARRHEA, #15 CAP 0 Refills Prov:SAAD LITTLE MD 10/02/22 Nitrofurantoin/Nitrofuran Mac (Macrobid) 100 Mg Cap, 1 CAP PO BID for 7 Days, #14 CAP 0 Refills Prov:SAAD LITTLE MD 10/02/22 Famotidine (Pepcid) 20 Mg Tablet, 20 MG PO BID, #60 TAB Prov:ELKIN BHATT 09/30/22 Past Medical History Past Medical History: GERD Medical History Other: Morbidly obese, H-PYLORI GASTRITIS Past Surgical History: None Family History Family History: Negative Social History Social History: Lives with family Female( History) : 0 Para: 0 Aborts: 0 ROS Dictation CONSTITUTIONAL: No chills, no fever, no weakness, no diaphoresis, no malaise. HEAD/FACE: No signs of trauma. EENT: No eye pain, no blurred vision, no tearing, no double vision, no ear pain, no ear discharge, no nose pain, no nasal congestion, no throat pain, no throat swelling, no mouth pain. RESPIRATORY: No cough, no SOB, no orthopnea, no PND, no wheezing. CARDIOVASCULAR: No chest pain, no edema, no palpitations, no syncope. GASTROINTESTINAL/ABDOMINAL: No abdominal pain, no constipation, no diarrhea, no nausea, no vomiting. GENITOURINARY: No abnormal discharge, no dysuria, no frequent urination, no hematuria. No complaints of pain in the genitals. MUSCULOSKELETAL: No back pain, no gout, no joint pain, no joint swelling, no muscle pain, no muscle stiffness, no neck pain. INTEGUMENTARY: No change in color, no change in hair/nails, no dryness, no lesion, no lumps, no rash. NEUROLOGICAL/PSYCH: No anxiety, not depressed, no emotional problem, no headache, no numbness, no pre-existing deficit, no history of seizures, no tremors, no weakness. HEMATOLOGIC/LYMPHATIC: Not anemic, no history of blood clots, no apparent bleeding, no bruising, glands not swollen. All Systems Negative, Except as Noted. Physical Exam Physical Exam Dictation VITAL SIGNS: Reviewed. GENERAL APPEARANCE: Alert, oriented x3 HEAD AND FACE: Non-traumatic. EYES: PERRL, pink conjunctivas, eyelid no trauma, anterior chamber clear. EARS: Pinnas intact and no signs of trauma or erythema. Ear canals clear and no discharge. TMs no erythema. NOSE: No discharge, no bleeding. OROPHARYNX: Mouth normal, teeth no caries, tongue pink. Pharynx clear, no erythema. Tonsils no exudates, no abscesses noted. Mucous membrane moist. NECK: Supple, non-tender, no thyromegaly, no masses, no JVD, no bruits. BREAST: Deferred. CHEST: No tenderness, no crepitus, no paradoxical movement, no retractions. LUNGS: Clear, well-ventilated, symmetric, no rales, no wheezing, no rhonchi, no stridor, good breath sounds bilaterally. HEART: Regular rate, regular rhythm, no murmur, no gallops. VASCULAR: No peripheral edema. ABDOMEN: Soft, positive bowel sounds, nondistended, no guarding, nontender, no rebound, no masses no hepatomegaly, no splenomegaly, no Maynard's sign, no hernias. RECTAL: Deferred. GENITAL: Deferred. NEUROLOGICAL: Normal speech, gross motor function intact, gross sensory function intact. MUSCULOSKELETAL: Neck nontender, full range of motion, back nontender, full range of motion. EXTREMITIES: Nontender, full range of motion. SKIN: Color pink, dry, no turgor, no rash, no lacerations, no abrasions, no contusions. LYMPHATICS: Deferred. Results Laboratory and Microbiology Lab and Micro Result Laboratory Tests Test 06/06/25 09:18 White Blood Count 9.7 K/uL (4.8-10.8) Red Blood Count 4.06 MIL/uL (4.00-5.50) Hemoglobin 13.1 g/dL (12.0-16.0) Hematocrit 38.6 % (36-48) Mean Corpuscular Volume 95.1 fL (80-100) Mean Corpuscular Hemoglobin 32.3 pg (27.0-33.0) Mean Corpuscular Hemoglobin Concent 33.9 g/dL (32.0-36.0) Red Cell Distribution Width 12.2 % (11.0-15.5) Platelet Count 285 K/uL (130-400) Mean Platelet Volume 10.5 fL (7.5-10.5) Immature Granulocyte % (Auto) 0.4 % (0-1) Neutrophils (%) (Auto) 75.5 % (40.0-77.0) Lymphocytes (%) (Auto) 18.7 % (21.0-51.0) L Monocytes (%) (Auto) 4.6 % (3.0-13.0) Eosinophils (%) (Auto) 0.3 % (0.0-8.0) Basophils (%) (Auto) 0.5 % (0.0-5.0) Neutrophils # (Auto) 7.3 K/uL (1.8-7.7) Lymphocytes # (Auto) 1.8 K/uL (1.0-4.8) Monocytes # (Auto) 0.5 K/uL (0.1-1.0) Eosinophils # (Auto) 0.03 K/uL (0.00-0.70) Basophils # (Auto) 0.05 K/uL (0.00-0.20) Absolute Immature Granulocyte (auto 0.04 K/uL (0-1) Nucleated Red Blood Cells 0.0 % (0.0-0.19) Sodium Level 140 mmol/L (136-145) Potassium Level 3.3 mmol/L (3.5-5.1) L Chloride Level 103 mmol/L (101-111) Carbon Dioxide Level 30 mmol/L (21-32) Blood Urea Nitrogen 7 mg/dL (7-18) Creatinine 0.5 mg/dL (0.5-1.0) Glomerular Filtration Rate Calc 138 mL/min (>90) Random Glucose 93 mg/dL (70-105) Total Calcium 8.4 mg/dL (8.5-10.1) L Human Chorionic Gonadotropin, Quant 59 mIU/mL (0-5) H Labs Reviewed?: Yes MDM Chief complaint: Vaginal bleeding since this morning. Mild brownish spotting noted this morning, positive urine test last night. No active bleeding. Past medical history: Gastritis, otherwise unremarkable. Vitals: Vitals were stable alert patient. Blood pressure was 159/94 on admission, later stabilized to 129/80. Review of systems: Unremarkable except for the nausea and vomiting. Physical Exam: Unremarkable. Labs: Serum beta HCG levels were 59, CBC and BMP were unremarkable. Imaging: Transvaginal ultrasound of the uterus looked normal. Differential diagnosis: Vaginal spotting in , miscarriage, ectopic . Assessment and Plan: Patient presented with mild vaginal spotting, brown in color this morning. She tested positive with urine test last night. Patient does not any pain. Serum beta hCG levels were 59 consistent with early . Patient advised to follow up with [facility] in a week the repeat the serum beta-hCG levels to confirm normal . ED Course Orders Procedure Category Date Status Time Hcg,Quantitative LAB 06/06/25 Complete 08:59 Cbc With Differential LAB 06/06/25 Complete 08:59 Basic Metabolic Panel LAB 06/06/25 Complete 08:59 Us Ob <14 Weeks US 06/06/25 Resulted 08:59 Vital Signs Date Time Temp Pulse Resp B/P (MAP) Pulse Ox O2 Delivery O2 Flow Rate FiO2 06/06/25 10:11 98.2 65 17 159/94 97 Room Air* 0 21 06/06/25 08:58 82 18 130/93 97 Room Air* 0 21 06/06/25 08:30 97.2 94 16 129/80 99 Room Air DX & DISP Disposition: Discharge Departure Impression: Primary Impression: Vaginal bleeding in Condition: Stable Additional Instructions: Your blood Beta HCG levels are 59 today. Normally during , the levels rise consistently every 48 hours. Follow up with your OB doctor in a week and repeat the Serum Beta HCG to check the levels. Referrals: MARTHA SWANSON MD (PCP) BRENDA SHERIDAN MD I performed a substantive portion of the visit. I have reviewed and personally made and approve the management plan that is documented in the notes by myself with TRINA/resident. I acknowledged full responsibility for the patient's management plan. GERSON SUTTON MD Jun 06, 2025 09:11 OLE MARS DO Jun 07, 2025 08:21
[2025-06-06 09:24] LABS: IMMATURE GRANULOCYTE ABSOLUTE 0.04 K/uL (0-1); NUCLEATED RED BLOOD CELLS 0.0 % (0.0-0.19); PLATELET COUNT (AUTO) 285 K/uL (130-400); RED BLOOD CELL COUNT(AUTO) 4.06 MIL/uL (4.00-5.50); RED CELL DISTRIBUTION WIDTH 12.2 % (11.0-15.5); WHITE BLOOD COUNT (AUTO) 9.7 K/uL (4.8-10.8)
[2025-06-06 09:33] LABS: CREATININE 0.5 mg/dL (0.5-1.0); GLOMERULAR FILTR. RATE CALC 138.0 mL/min (>90); GLUCOSE,RANDOM 93.0 mg/dL (70-105); SODIUM SERUM 140.0 mmol/L (136-145); UREA NITROGEN, BLOOD 7.0 mg/dL (7-18)
[2025-06-06 09:45] LABS: HCG,QUANTITATIVE 59.0 mIU/mL (0-5)
[2025-06-06 10:11] VITALS: BP 159/94; PULSE 65; RESP 17; TEMP 98.2; O2SAT 97
--- NOTE | 2025-06-06 10:37 | HMCIMG ---
EXAM: US Obstetrical, Complete <14 weeks CLINICAL HISTORY: Vaginal bleeding? Rule out ectopic TECHNIQUE: Transabdominal imaging of the maternal pelvis and a <14 week gestation with image documentation. COMPARISON: None provided. FINDINGS: Quantitative beta-hCG was not available at the time of interpretation. The uterus is normal in caliber and anteverted with overall dimensions of 7.8 x 2.9 x 4.6 cm. Endometrial stripe is normal in caliber, measuring up to 0.6 cm. There is no intrauterine or products of conception visualized. Cervix appears closed, normal in length. The right ovary measures 3.6 x 3.5 x 4.1 cm. Incidental 2.5 x 2.0 x 1.8 cm right ovarian cyst. Left ovary measures 2.0 x 1.4 x 2.5 cm. Bilateral ovarian blood flow documented. No free fluid. IMPRESSION: 1. No definite intrauterine or products of conception. Recommend correlation with quantitative beta-hCG, and short interval follow-up ultrasound imaging of the pelvis if clinically warranted. /Rk
== END 2025-06-06 10:19 | disposition home or self-care (01) ==
LOC: EDH 08:29
DX: O20.9 Hemorrhage in early pregnancy, unspecified (principal); O26.891 Other specified pregnancy related conditions, first trimester; E66.01 Morbid (severe) obesity due to excess calories; R10.2 Pelvic and perineal pain; Z79.899 Other long term (current) drug therapy; Z3A.10 10 weeks gestation of pregnancy
CPT/HCPCS: 36415; 76801; 80048; 84702; 85025; 99284